=== PATIENT | male | born 1985 | race Caucasian/White ===

== ENCOUNTER 2016-08-15 12:58 | Emergency (ER) | payer MEDICAID ==
[2016-08-15 13:28] VITALS: BP 112/63; PULSE 85; RESP 16; TEMP 98.4; O2SAT 95
--- NOTE | 2016-08-15 14:54 | UCPHY ---
H & P Time Seen by Provider: 08/15/16 13:32 Patient Type: New HPI/ROS: 31-year-old male presents complaining of right hand pain after punching a wall Review of systems General no fever no chills no weakness HEENT no eye pain no eye discharge. No eye redness, no sore throat Respiratory no cough, no shortness of breath Cardiac no chest pain, no peripheral edema GI no abdominal pain, no diarrhea, no constipation, no nausea, no vomiting no flank pain, no hematuria, no dysuria Musculoskeletal no myalgias, positive joint pain Heme no easy bruising, no easy bleeding Endo no polyuria, no polydipsia Skin no rashes, no pruritus Neuro no syncope, no dizziness, no headaches Psych is no suicidal ideation, no homicidal ideation Past Medical/Surgical History: Bipolar Social History: Denies alcohol or drug use Smoking Status: Never smoked Physical Exam: 31-year-old male alert and oriented no acute distress nontoxic appearance Atraumatic normocephalic Neck no JVD Lungs clear to auscultation, no respiratory distress Heart regular rate and rhythm Extremities no cyanosis clubbing edema Except right hand Abrasion over 4th and 3rd metacarpal, no edema Full range of motion digits good capillary refill able to make a fist full range of motion at wrist and elbow as well Sensation intact Constitutional: Initial Vital Signs Temperature (C) 36.9 C 08/15/16 13:26 Heart Rate 85 08/15/16 13:26 Respiratory Rate 16 08/15/16 13:26 Blood Pressure 112/63 08/15/16 13:26 O2 Sat (%) 95 08/15/16 13:26 O2 Delivery Mode Room Air Allergies/Adverse Reactions: amoxicillin [Amoxicillin] Allergy (Unknown, Verified 08/15/16 13:18) Home Medications: Medication Instructions Recorded Concerta 09/16/12 Lamictal 09/16/12 Lisinopril 09/16/12 Medical Decision Making - Diagnostics Imaging: Right hand x-ray negative for fracture Differential Diagnosis: Patient seen and evaluated for right hand pain after punching a wall X-ray negative for fracture Exam consistent with x-ray, has abrasion Impression Hand contusion/abrasion Plan Rest ice elevation ibuprofen as needed for pain Departure - Departure Disposition: Home, Routine, Self-Care Clinical Impression: Contusion of right hand Condition: Good Instructions: Hematoma (ED) Referrals: NONE *PRIMARY CARE P,. [Primary Care Provider] - As per Instructions - PQRS PQRS Measurement: na
== END 2016-08-15 15:03 | disposition home or self-care (01) ==
LOC: CED 12:58
DX: S60.221A Contusion of right hand, initial encounter (principal); Y92.019 Unspecified place in single-family (private) house as the place of occurrence of the external cause; W22.09XA Striking against other stationary object, initial encounter
CPT/HCPCS: 73130-PO; 99202-PO; G0463-PO

== ENCOUNTER 2018-09-13 22:56 | Emergency (ER) | payer MEDICAID ==
--- NOTE | 2018-09-13 23:44 | EDPHY ---
H & P Time Seen by Provider: 09/13/18 23:03 HPI/ROS: CC: cough, difficulty breathing HPI: This 33-year-old male with past medical history including seizure disorder and a bicuspid aortic valve presents to the emergency department today complaining that he has had a cough for the last 5 days that has been productive of green sputum and now he has been short of breath for the last 2 days. His chest feels tight and his breathing is worse when he lies down. His voice has become scratchy any has a sore throat. It hurts to cough. He denies fever, chills, nausea, vomiting, abdominal pain, constipation, or diarrhea. No ill contacts. He did not get the flu vaccination this year. REVIEW OF SYSTEMS: Constitutional: No fever, no chills. Eyes: No discharge. ENT: See HPI. Respiratory: See HPI. Cardiac: See HPI. Gastrointestinal: No abdominal pain, no vomiting. Genitourinary: No dysuria. Musculoskeletal: No back pain. Skin: No rashes. Neurological: No headache. Past Medical/Surgical History: PMH: Bicuspid aortic valve, a seizure in 2003, attention deficit disorder PSH: Denied FH: Father had vision problems due to a blood clot Allergies to amoxicillin which caused swelling when he was 2 years old. Medications include Concerta, lisinopril, Lamictal Primary care provider is Dr. Ange Cowan in [facility] Social History: No tobacco use; rare (on birthday) alcohol use; no marijuana use. Smoking Status: Never smoked Physical Exam: General Appearance: Alert, mild distress. Eyes: Pupils equal and round no pallor or injection. ENT, Mouth: Mucous membranes are moist. Respiratory: There are no retractions, lungs are coarse to auscultation. Cardiovascular: Regular rate and rhythm. Gastrointestinal: Abdomen is soft and nontender. Neurological: Awake and alert, sensory and motor exams grossly normal. Skin: Warm and dry, no rashes. Musculoskeletal: Neck is supple, nontender. Extremities are symmetrical, full range of motion. No edema. Psychiatric: Patient is oriented X 3, there is no agitation. DIFFERENTIAL DIAGNOSIS: After history and physical exam differential diagnosis was considered for but not limited to and in no particular order: Upper respiratory infection, viral syndrome, influenza, bronchitis, pneumonia, strep throat Constitutional: Initial Vital Signs Temperature (C) 99.0 F 09/13/18 23:08 Heart Rate 75 09/13/18 23:08 Respiratory Rate 16 09/13/18 23:08 Blood Pressure 103/57 L 09/13/18 23:08 O2 Sat (%) 95 09/13/18 23:08 O2 Delivery Mode Room Air Allergies/Adverse Reactions: amoxicillin [Amoxicillin] Allergy (Unknown, Verified 09/13/18 23:03) Home Medications: Medication Instructions Recorded Concerta 09/16/12 Lamictal 09/16/12 Lisinopril 09/16/12 Azithromycin 250 mg PO DAILY 4 Days #4 tablet 09/14/18 Medical Decision Making - Diagnostics Imaging: I viewed and interpreted images myself (Mild peribronchial cuffing otherwise normal.) ED Course/Re-evaluation: The patient was seen and examined. Vital signs reviewed and were fairly unremarkable. Chest x-ray showed mild peribronchial cuffing by my read. The patient was given an albuterol inhaler and the first 500 mg of azithromycin. He was sent home with a prescription for another 4 days of azithromycin 250 mg per day. He will follow up with his primary care provider as needed or return to the emergency room sooner if worse. - Data Points Medications Given: Discontinued Medications Albuterol Sulfate (Proventil Inh Prepack) 1 mdi TAKEHOME EDNOW ONE Stop: 09/14/18 00:36 Last Admin: 09/14/18 00:56 Dose: 1 mdi Azithromycin (Zithromax) 500 mg PO EDNOW ONE PRN Reason: Protocol Stop: 09/14/18 00:35 Last Admin: 09/14/18 00:56 Dose: 500 mg Departure - Departure Disposition: Home, Routine, Self-Care Clinical Impression: Acute bronchitis Qualifiers: Bronchitis organism: unspecified organism Qualified Code(s): J20.9 - Acute bronchitis, unspecified Condition: Good Instructions: Albuterol (By breathing), Azithromycin (By mouth), Acute Bronchitis (ED) Additional Instructions: Follow up with your primary care provider if symptoms persist or return to the ER sooner if worse as discussed. Referrals: Ange Cowan MD [Medical Doctor] - 5-7 days, if not improved Prescriptions: Azithromycin 250 mg PO DAILY 4 Days #4 tablet
[2018-09-14] MEDS ORDERED: AZITHROMYCIN 250 MG TAB PO ONE (00:34)
[2018-09-14] MEDS ORDERED: ALBUTEROL INH PREPACK MDI TAKEHOME ONE (00:35)
[2018-09-14 00:58] VITALS: BP 108/74
== END 2018-09-14 00:58 | disposition home or self-care (01) ==
LOC: CED 22:56
DX: J20.9 Acute bronchitis, unspecified (principal)
CPT/HCPCS: 71046-PO; 99284-ER